=== PATIENT | female | born 1960 | race African-American/Black ===

== ENCOUNTER 2016-06-25 13:34 | Emergency (ER) | payer OTHER ==
[~2016-06-25] VITALS: Ht 167.6 cm; Wt 100.0 kg
[2016-06-25] MEDS ORDERED: FLUO-191 PO (13:45)
[2016-06-25] MEDS ORDERED: GABA-531 PO (13:45)
[2016-06-25] MEDS ORDERED: CHOL500050 PO (13:45)
[2016-06-25] MEDS ORDERED: HYD25 PO (13:45)
[2016-06-25] MEDS ORDERED: SENN-30 PO (13:45)
[2016-06-25 13:50] VITALS: BP 156/90
== END 2016-06-25 15:04 | disposition home or self-care (01) ==
LOC: EMS 13:35
DX: S33.5XXA Sprain of ligaments of lumbar spine, initial encounter (principal); S43.401A Unspecified sprain of right shoulder joint, initial encounter; S16.1XXA Strain of muscle, fascia and tendon at neck level, initial encounter; M62.830 Muscle spasm of back; G89.29 Other chronic pain; F17.210 Nicotine dependence, cigarettes, uncomplicated; V49.9XXA Car occupant (driver) (passenger) injured in unspecified traffic accident, initial encounter; Y93.89 Activity, other specified; Y92.89 Other specified places as the place of occurrence of the external cause; Y99.8 Other external cause status
CPT/HCPCS: 99283

== ENCOUNTER 2016-08-23 09:13 | Emergency (ER) | payer OTHER ==
[~2016-08-23] VITALS: Ht 167.6 cm; Wt 100.0 kg
[~2016-08-23 09:13] MED LIST: CHOL500050 PO; FLUO-191 PO; GABA-531 PO; HYD25 PO; SENN-30 PO
[2016-08-23] MEDS ORDERED: CYCL10 PO (09:23)
[2016-08-23] MEDS ORDERED: NAPR-58 PO (09:23)
[2016-08-23] MEDS ORDERED: LEVOFLOXACIN 750 MG/D5% WATER 150 ML IV ONE (11:30)
[2016-08-23] MEDS ORDERED: ALBUTEROL SULFATE 2.5 MG/0.5 ML NEB SOLUTION NEB ONE (11:30)
[2016-08-23] MEDS ORDERED: IPRATROPIUM BROMIDE 0.5 MG/2.5 ML NEB SOLUTION NEB ONE (11:30)
[2016-08-23] MEDS ORDERED: MethylPREDNISolone SOD SUCC 125 MG/2 ML VIAL IVP ONE (11:30)
[2016-08-23 11:56] LABS: BASOPHILS % (AUTO) 0.3 % (0.0-2.0); EOSINOPHILS % (AUTO) 0.6 % (1.0-6.0); HEMOGLOBIN 14.4 g/dL (12.0-16.0); LYMPHOCYTES # (AUTO) 1.2 K/uL (1.0-4.8); LYMPHOCYTES % (AUTO) 25.3 % (22.0-44.0); MEAN CORPUSCULAR HEMOGLOBIN 25.9 pg (26.0-34.0); MEAN CORPUSCULAR HGB CONC 31.4 G/dL (31.0-37.0); MEAN CORPUSCULAR VOLUME 82 fL (80-100); MONOCYTES # (AUTO) 0.5 K/uL (0.1-1.0); MONOCYTES % (AUTO) 11.2 % (2.0-9.0); NEUTROPHILS % (AUTO) 62.6 % (40.0-70.0); PLATELET COUNT (AUTO) 315 K/uL (150-450); RED BLOOD CELL COUNT(AUTO) 5.58 MIL/uL (4.00-5.20); RED CELL DISTRIBUTION WIDTH 17.6 % (11.5-14.5); WHITE BLOOD COUNT (AUTO) 4.7 K/uL (4.5-11.0)
[2016-08-23 12:13] LABS: ANION GAP 7 mmol/L (8-16); CARBON DIOXIDE 33 mmol/L (22-29); CHLORIDE 103 mmol/L (98-107); GLOMERULAR FILTR. RATE CALC > 60 mL/min (>60); POTASSIUM 4.4 mmol/L (3.5-5.1); SODIUM SERUM 143 mmol/L (136-145); UREA NITROGEN, BLOOD 12 mg/dL (7-18)
[2016-08-23 12:18] LABS: ALANINE AMINOTRANSFERASE 26 U/L (12-78); ALBUMIN 3.4 g/dL (3.4-5.0); ASPARTATE AMINOTRANSFERASE 20 U/L (15-37); BILIRUBIN,TOTAL 0.3 mg/dL (0.1-1.0); TOTAL PROTEIN, SERUM 7.2 g/dL (6.4-8.2)
[2016-08-23 12:21] LABS: RBC MORPHOLOGY COMMENT ABNORMAL RBC MORPH
[2016-08-23 13:31] VITALS: BP 130/71
== END 2016-08-23 13:37 | disposition home or self-care (01) ==
LOC: EMS 09:14
DX: J44.9 Chronic obstructive pulmonary disease, unspecified (principal); F17.210 Nicotine dependence, cigarettes, uncomplicated
CPT/HCPCS: 36415; 71020; 80053; 84484; 85025; 94060; 94640; 96365; 96375; 99285; J1956; J2930; J7613